=== PATIENT | male | born 1980 ===

== ENCOUNTER 2020-11-07 10:17 | Day surgery (SDC) | payer BC ==
[~2020-11-07 10:17] MED LIST: Bupivacaine 25%/EPINEPHrine/PF 30 ML ONE; Lactated Ringers 1,000 ML IV SCH; Levofloxacin/Dextrose 5%-Water 750 MG in Premix Bag 1 BAG IV SCH; Octyl 2-Cyanoacrylate 1 Tube ONE
[2020-11-07] MEDS ORDERED: Propofol 200 MG/20 ML SDV ONE (10:18)
[2020-11-07] MEDS ORDERED: fentaNYL 250 MCG/5 ML SDV ONE (10:18)
[2020-11-07] MEDS ORDERED: Midazolam 1 MG/ML 2 ML SDV ONE (10:18)
[2020-11-07] MEDS ORDERED: Rocuronium Bromide 50 MG/5 ML Syringe ONE (10:19)
[2020-11-07] MEDS ORDERED: Ketorolac 30 MG/ML SDV ONE (10:19)
[2020-11-07] MEDS ORDERED: Glycopyrrolate 0.2 MG/ML SDV ONE (10:19)
[2020-11-07] MEDS ORDERED: Lidocaine 2% 5 ML SDV ONE (10:19)
[2020-11-07] MEDS ORDERED: Ondansetron 4 MG/2 ML SDV ONE (10:19)
[2020-11-07] MEDS ORDERED: fentaNYL 100 MCG/2 ML SDV IVPUSH PRN (10:31)
[2020-11-07] MEDS ORDERED: Acetaminophen 1,000 MG in Premix Bag 1 BAG IV PRN (10:31)
[2020-11-07] MEDS ORDERED: Scopolamine 1.5 MG Transdermal Patch ONE (10:46)
[2020-11-07] MEDS ORDERED: Scopolamine 1.5 MG Transdermal Patch TRDERM PRN (10:48)
--- NOTE | 2020-11-07 10:52 | PCM.PREANE ---
Preanesthetic Assessment - Anesthesia/Transfusion/Family Hx Anesthesia History: Prior Anesthesia Without Reaction Family History of Anesthesia Reaction: No Transfusion History: No Prior Transfusion(s) Intubation History: Unknown - Review of Systems General: No Symptoms Pulmonary: No Symptoms Cardiovascular: No Symptoms Gastrointestinal: No Symptoms Neurological: No Symptoms Other: Reports: None - Physical Assessment Vital Signs: Last Vital Signs Temp 36.6 C 11/07/20 10:24 Pulse 77 11/07/20 10:24 Resp 15 11/07/20 10:24 BP 120/74 11/07/20 10:24 Pulse Ox 98 11/07/20 10:24 Height: 5 ft 11 in Weight: 97.522 kg ASA Class: 3 Mental Status: Alert & Oriented x3 Airway Class: Mallampati = 3 Dentition: Reports: Normal Dentition (small chip front upper incisor) Thyro-Mental Finger Breadths: 3 Mouth Opening Finger Breadths: 2 ROM/Head Extension: Full Lungs: Clear to Auscultation, Normal Respiratory Effort Cardiovascular: Regular Rate, Regular Rhythm - Allergies Allergies/Adverse Reactions: Allergies Allergy/AdvReac Type Severity Reaction Status Date / Time amoxicillin Allergy Hives Verified 11/05/20 08:19 Penicillins Allergy Hives Verified 11/05/20 08:19 - Blood Blood Available: No - Anesthesia Plan Pre-Op Medication Ordered: None - Acknowledgements Anesthesia Type Planned: General Anesthesia Pt an Appropriate Candidate for the Planned Anesthesia: Yes Alternatives and Risks of Anesthesia Discussed w Pt/Guardian: Yes Pt/Guardian Understands and Agrees with Anesthesia Plan: Yes PreAnesthesia Questionnaire HEENT History: Reports: Other (See Below) Other HEENT History: wears glasses Cardiovascular History: Reports: High Cholesterol, Hypertension Respiratory History: Reports: Sleep Apnea Other Respiratory History: uses CPAP Gastrointestinal History: Reports: Cholelithiasis, GERD Genitourinary History: Reports: None Musculoskeletal History: Reports: Arthritis, Back Pain, Chronic Other Musculoskeletal History: bulging lumbar disc Neurological History: Reports: Other (See Below) Other Neuro History: states has pinched nerve which affects his shoulder Psychiatric History: Reports: ADD Endocrine/Metabolic History: Reports: Diabetes, Type II, Obesity/BMI 30+ (BMI 30.0) Hematologic History: Reports: None Immunologic History: Reports: None Oncologic (Cancer) History: Reports: None Dermatologic History: Reports: None - Past Surgical History Head Surgeries/Procedures: Reports: None HEENT Surgical History: Reports: Adenoidectomy, Tonsillectomy Cardiovascular Surgical History: Reports: None Respiratory Surgical History: Reports: None GI Surgical History: Reports: None Male Surgical History: Reports: None Endocrine Surgical History: Reports: None Neurological Surgical History: Reports: None Musculoskeletal Surgical History: Reports: None Oncologic Surgical History: Reports: None Dermatological Surgical History: Reports: None - SUBSTANCE USE Tobacco Use Status *Q: Never Tobacco User Recreational Drug Use History: No - HOME MEDS Home Medications: Home Meds Amphetamine/Dextroamphetamine [Adderall] 20 mg PO ACBREAKFAST 11/05/20 [History] Aspirin [Adult Aspirin Regimen] 81 mg PO DAILY 11/05/20 [History] Cetirizine [ZyrTEC] 10 mg PO BEDTIME 11/05/20 [History] Dextroamphetamine/Amphetamine [Adderall 10 mg Tablet] 2 tab PO ACLUNCH 11/05/20 [History] Gabapentin [Neurontin] 3 tab PO TID 11/05/20 [History] Ibuprofen 4 tab PO BID PRN 11/05/20 [History] Liraglutide [Victoza] 1 injection SUBCUT DAILY 11/05/20 [History] Loratadine [Claritin] 10 mg PO BID 11/05/20 [History] Magnesium Citrate 250 mg PO BEDTIME 11/05/20 [History] Multivitamin 1 tab PO BID 11/05/20 [History] Omeprazole Magnesium [Prilosec Otc] 40 mg PO DAILY 11/05/20 [History] Rosuvastatin [Crestor] 20 mg PO DAILY 11/05/20 [History] lisinopriL [Lisinopril] 10 mg PO DAILY 11/05/20 [History] metFORMIN HCl [Glucophage] 1,000 mg PO BID 11/05/20 [History] - CURRENT (IN HOUSE) MEDS Current Meds: Current Medications Fentanyl (Fentanyl 100 Mcg/2 Ml Sdv) 50 mcg IVPUSH Q5M PRN PRN Reason: Pain Lactated Ringer's (Ringers, Lactated) 1,000 mls @ 125 mls/hr IV ASDIRECTED ALTHEA Acetaminophen 1,000 mg/ Premix 100 mls @ 400 mls/hr IV Q6H PRN PRN Reason: Pain Scopolamine (Scopolamine 1.5 Mg Transdermal Patch) 1.5 mg TRDERM Q72H PRN PRN Reason: Nausea Discontinued Medications Fentanyl (Fentanyl 250 Mcg/5 Ml Sdv) Confirm Administered Dose 250 mcg .ROUTE .STK-MED ONE Stop: 11/07/20 10:19 Glycopyrrolate (Glycopyrrolate 0.2 Mg/Ml Sdv) Confirm Administered Dose 0.8 mg .ROUTE .STK-MED ONE Stop: 11/07/20 10:20 Levofloxacin/Dextrose 750 mg/ (Premix) 150 mls @ 100 mls/hr IV ONARRIVE ALTHEA Stop: 11/06/20 23:59 Bupivacaine HCl/Epinephrine Bitart (Sensorc Mpf 0.25%-Epi [id number]) Confirm Administered Dose 30 mls @ as directed .ROUTE .ST-MED ONE Stop: 11/07/20 07:41 Ketorolac Tromethamine (Ketorolac 30 Mg/Ml Sdv) Confirm Administered Dose 30 mg .ROUTE .STK-MED ONE Stop: 11/07/20 10:20 Lidocaine (Lidocaine 2% 5 Ml Sdv) Confirm Administered Dose 5 ml .ROUTE .STK-MED ONE Stop: 11/07/20 10:20 Midazolam HCl (Midazolam 1 Mg/Ml 2 Ml Sdv) Confirm Administered Dose 2 mg .ROUTE .STK-MED ONE Stop: 11/07/20 10:19 Octyl Cyanoacrylate (Octyl 2-Cyanoacrylate 1 Tube) Confirm Administered Dose 1 applic .ROUTE .STK-MED ONE Stop: 11/07/20 07:41 Ondansetron HCl (Ondansetron 4 Mg/2 Ml Sdv) Confirm Administered Dose 4 mg .ROUTE .STK-MED ONE Stop: 11/07/20 10:20 Propofol (Propofol 200 Mg/20 Ml Sdv) Confirm Administered Dose 200 mg .ROUTE .STK-MED ONE Stop: 11/07/20 10:19 Rocuronium Severance (Rocuronium Severance 50 Mg/5 Ml Syringe) Confirm Administered Dose 50 mg .ROUTE .STK-MED ONE Stop: 11/07/20 10:20 Scopolamine (Scopolamine 1.5 Mg Transdermal Patch) Confirm Administered Dose 1.5 mg .ROUTE .STK-MED ONE Stop: 11/07/20 10:47
[2020-11-07] MEDS ORDERED: Levofloxacin/Dextrose 5%-Water 150 ML IV ONE (11:12)
[2020-11-07] MEDS ORDERED: fentaNYL 100 MCG/2 ML SDV ONE (11:43)
--- NOTE | 2020-11-07 13:08 | PCM.OPNOTE ---
- General Post-Op/Procedure Note Date of Surgery/Procedure: 11/07/20 Operative Procedure(s): lap berenice Findings: gb was yellow and green, completely engulfed by omentum, suggested chronic cholecystitis; wall is not thickened; several gallstones, not small; surgicell inserted for hemostasis;see [id number] Pre Op Diagnosis: acute and chronic cholecystitis Post-Op Diagnosis: Same Anesthesia Technique: General ET Tube Primary Surgeon: Faraz Orr Surgical Drain/Tube Type: Ector Katz Flat Drain Complications: None Condition: Good
[2020-11-07] MEDS ORDERED: Acetaminophen/oxyCODONE 325-10 MG Tab PO PRN (13:14)
--- NOTE | 2020-11-07 13:42 | OR ---
SURGEON: Faraz Orr MD DATE OF PROCEDURE: 11/07/2020 PREOPERATIVE DIAGNOSIS: Acute on chronic cholecystitis. POSTOPERATIVE DIAGNOSIS: Acute on chronic cholecystitis. PROCEDURE PROPOSED: Laparoscopic cholecystectomy. PROCEDURE PERFORMED: Laparoscopic cholecystectomy with a piece of Surgicel placed for hemostasis. PRIMARY SURGEON: Faraz Orr MD COMPLICATIONS: None. FINDINGS: The gallbladder wall was yellow and green and completely engulfed by the omentum, suggests chronic cholecystitis. There are several stones in the gallbladder, large ones. Wall is not thickened. PROCEDURE NOTE: The patient was taken to the operating room and placed in the supine position. After the intubation of general endotracheal anesthesia, the patient's abdomen was prepped and draped in the usual sterile fashion. Using Merchant View, a 12 mm trocar was placed supraumbilically and then followed with pneumoperitoneum. A 5 mm trocar was placed in the epigastrium and two 5 mm trocars placed in the right upper quadrant. The placement of the last three trocars was done under direct video supervision. Upon gaining entrance to the abdominal cavity, an extensive examination was then performed. The gallbladder was located and identified and retracted to the dome of the liver at the triangle of Calot. The cystic duct was clipped three more times and then using the endoscopic clip, was transected with placement of the endoscopic clip and transection was performed with care, ensuring the posterior prong of the instruments were clearly visualized prior to exercising the procedure. The gallbladder was dissected using electrocautery out of the liver bed and then removed using endoscopic bag through the umbilical site. The gallbladder was removed en bloc and there was no bile spillage and this was then followed with extensive irrigation until the bile was clear from blood and bile. Right after the gallbladder had been removed and hemostasis had been checked, a piece of Surgicel placed in the gallbladder bed. It was then followed with the placement of a flat 10 ALYSSA drain on the lower subcostal port site, anchored to the skin. The trocars were then removed under direct video supervision. The 12 mm umbilical site was then closed with deep stitches using 0 Vicryl followed with proximal stitches using 3-0 Vicryl and Dermabond. The other three trocar sites were closed with 3-0 Vicryl followed with approximation of skin with Dermabond. The patient was then awakened and extubated and transferred to the recovery room in hemodynamically stable condition. At the conclusion of the surgery, before closing the abdominal wound, instrument count and sponge count were done and were correct. The patient tolerated the procedure well and there were no intraoperative complications. Dr. Orr was present through the whole procedure. Just before surgery, a timeout was called. The patient was identified and procedure identified and procedure started. Intraoperative findings as dictated above. URINE OUTPUT: 130. ESTIMATED BLOOD LOSS: 125. Of note, the patient has been on 2400 Motrin every day. NINA / KRISTOPHER /[id number]
--- NOTE | 2020-11-07 14:16 | PCM.POSTAN ---
POST ANESTHESIA ASSESSMENT - MENTAL STATUS Mental Status: Alert (4), Oriented - VITAL SIGNS Vital Signs: Last Vital Signs Temp 35.7 C L 11/07/20 13:45 Pulse 79 11/07/20 14:00 Resp 14 11/07/20 14:00 BP 135/74 11/07/20 13:45 Pulse Ox 93 L 11/07/20 14:00 - RESPIRATORY Respiratory Status: Respiratory Rate WNL, Airway Patent, O2 Saturation Stable - CARDIOVASCULAR CV Status: Pulse Rate WNL, Blood Pressure Stable - GASTROINTESTINAL GI Status: No Symptoms - PAIN Pain Score: 4 - POST OP HYDRATION Hydration Status: Adequate & Stable - OBSERVATIONS Free Text/Narrative:: No anesthesia problems
[2020-11-07] MEDS ORDERED: Albuterol/Ipratropium 3.0-0.5 MG/3 ML Neb Soln NEB ONE (15:09)
--- NOTE | 2020-11-07 16:07 | PCM48HPAN ---
Post Anesthesia Note - EVALUATION WITHIN 48HRS OF ANESTHETIC Vital Signs in Normal Range: Yes Patient Participated in Evaluation: Yes Respiratory Function Stable: Yes Airway Patent: Yes Cardiovascular Function Stable: Yes Hydration Status Stable: Yes Pain Control Satisfactory: Yes Nausea and Vomiting Control Satisfactory: Yes Mental Status Recovered: Yes Vital Signs: Last Vital Signs Temp 35.7 C L 11/07/20 13:45 Pulse 88 11/07/20 15:45 Resp 16 11/07/20 15:45 BP 144/71 H 11/07/20 15:45 Pulse Ox 99 11/07/20 15:45 - COMMENTS/OBSERVATIONS Free Text/Narrative:: No anesthesia problems
== END 2020-11-07 16:10 | disposition home or self-care (01) ==
LOC: MW.SDS 10:17
PROVIDERS: ATTEND Surgery
DX: K80.12 Calculus of gallbladder with acute and chronic cholecystitis without obstruction (principal); E78.00 Pure hypercholesterolemia, unspecified; E11.9 Type 2 diabetes mellitus without complications; K21.9 Gastro-esophageal reflux disease without esophagitis; G47.30 Sleep apnea, unspecified; E66.9 Obesity, unspecified; Z68.29 Body mass index [BMI] 29.0-29.9, adult; Z88.0 Allergy status to penicillin; Z91.09 Other allergy status, other than to drugs and biological substances; Z79.82 Long term (current) use of aspirin; Z79.899 Other long term (current) drug therapy; Z98.890 Other specified postprocedural states
CPT/HCPCS: 47562; 82962; 88304; A9270; J2250; J2405; J2704; J3010; J3490; J7120; J1885; J7620-GY